=== PATIENT | male | born 1995 | race Caucasian/White ===

== ENCOUNTER 2016-09-29 17:07 | Emergency (ER) | payer OTHER ==
--- NOTE | 2016-09-29 18:40 | REP ---
SCROTAL ULTRASOUND: HISTORY: Swelling. The right testicle measures 4.7 x 2.4 x 3.3 cm. The left testicle measures 4.4 x 2 x 2.8 cm. A small focus of increased echogenicity is present in the mid right testicle. This measures 2.1 x 1.2 x 1.7 mm. This may represent a calcification. The right epididymis measures 10 mm. The left epididymis measures 7.7 mm. A cyst is present in the left epididymis. This measures 6.1 x 4.2 x 3.3 mm. There is no hydrocele or torsion. IMPRESSION: 1. There is a small 2.1 mm focus of increased echogenicity in the right testicle that may represent a calcification. 2. Small 6.1 mm left epididymal cyst. 3. There is no torsion. Signed by Robert Holland MD 09/29/2016 06:41 P
--- NOTE | 2016-09-29 18:57 | EDDOCDS ---
Nurse's Notes [facility] Name: Ari Wu Age: 21 yrs Sex: Male : 1995 Arrival Date: 09/29/2016 Time: 17:07 Bed Triage 3 Private MD: NO PRIMARY PHYSICIAN, . Diagnosis: Cyst of epididymis-left 6.1mm Presentation: 09/29 17:18 Presenting complaint: Patient states: left testicle is in constant pain and pain in hs1 lower abdomen. Patient reports left testicle is more swollen than the right side. patient reports no bruising noted. Adult Sepsis Screening: The patient does not have new or worsening altered mentation. Patient's respiratory rate is less than 22. Systolic blood pressure is greater than 100. Patient has a qSOFA score of 0- Negative Sepsis Screen. Suicide/Homicide risk assessment- the patient denies having any suicidal and/or homicidal ideations and does not present with any other emotional, behavioral or mental health complaints. Status: Patient is not a auto self service station attendant or dependent. Transition of care: patient was not received from another setting of care. 17:18 Acuity: ADRYAN Level 3 hs1 17:18 Method Of Arrival: Walkin/Carried/Asstd hs1 Triage Assessment: 17:21 General: Appears uncomfortable, Behavior is appropriate for age, cooperative. Pain: hs1 Location: left testicle Pain currently is 6 out of 10 on a pain scale. Quality of pain is described as sharp. Pt Declines HIV testing. Respiratory: No deficits noted. Derm: Skin is pink, warm & dry. normal. Historical: - Allergies: no known allergies; - Home Meds: 1. none - PMHx: none; - PSHx: none; - Social history: Smoking status: Patient states was never smoker of tobacco. No barriers to communication noted, The patient speaks fluent Finnish, Speaks appropriately for age. - Family history: Not pertinent. - : The pt / caregiver states he / she is not on anticoagulants. Home medication list is obtained from the patient. - Exposure Risk Screening:: None identified. Screenin:49 Screening information is obtained from the patient. Fall risk: No risks identified. js13 Assistance ADL's: requires no assistance with activities of daily living. Abuse/DV Screen: The patient / caregiver reports he/she is: not in a situation that causes fear, pain or injury. Nutritional screening: No deficits noted. Advance Directives: There is no active DNR order. home support is adequate. Assessment: 18:49 General: Appears in no apparent distress, Behavior is appropriate for age, cooperative. js13 Pain: Location: groin. Neurological: Level of Consciousness is awake, alert. Respiratory: Airway is patent Respiratory effort is even, unlabored, Respiratory pattern is regular, symmetrical. Derm: Skin is pink, warm & dry. Vital Signs: 17:08 BP 154 / 90; Pulse 98; Resp 18 S; Temp 97.4(O); Pulse Ox 100% on R/A; Weight 73.94 kg dd6 (R); Height 6 ft. 0 in. (182.88 cm) (R); 18:51 BP 138 / 90 LA Sitting (auto/reg); Pulse 90; Resp 20; Temp 96.6; Pulse Ox 99% on R/A; bnb Pain 6/10; 17:08 Body Mass Index 22.11 (73.94 kg, 182.88 cm) dd6 Vitals: 17:08 Log In Time: September 29, 2016 at 17:06. dd6 ED Course: 17:08 Patient visited by Samuel Hayward PCA. dd6 17:08 NO PRIMARY PHYSICIAN, . is Private Physician. dd6 17:08 Patient moved to Waiting dd6 17:09 Patient moved to Pre RCE dd6 17:21 Triage Initiated hs1 18:35 Patient moved to Triage 3 ar3 18:43 [facility] cc10 18:43 Caprice Hannah MD is Attending Physician. cc10 18:43 Patient visited by Sergo Gorman PA-C. cc10 18:43 Patient visited by Sergo Gorman PA-C. cc10 18:49 The patient / caregiver is instructed regarding the plan of care and ED course. js13 18:49 No IV's were initiated during this patient's visit. No procedures done that require js13 assistance. 18:51 Yakov Shaw is Referral Physician. cc10 18:52 Patient visited by Alta Tejada PCA. bnb Order Results: There are currently no results for this order. Outcome: 18:50 Discharge Assessment: Patient awake, alert and oriented x 3. No cognitive and/or js13 functional deficits noted. Patient verbalized understanding of disposition instructions. patient administered narcotics - no. The following High Risk Discharge criteria are identified: None. Discharged to home ambulatory, with parent. Condition: stable. Discharge instructions given to patient, Instructed on discharge instructions, follow up and referral plans. medication usage, Demonstrated understanding of instructions, medications, Pt was receptive of discharge instructions/ teaching. Prescriptions given X 1. Ultrasound Study completed. Property :Personal belongings accompany Pt. 18:52 Discharge ordered by Provider. cc10 18:56 Patient left the ED. js13 Signatures: Samuel Hayward, LOAN REVIEW OFFICER LOAN REVIEW OFFICER dd6 Venus Barrios, LOAN REVIEW OFFICER LOAN REVIEW OFFICER ar3 Bee Nelson, RN RN hs1 Annie KendallRN RN js13 Sergo Gorman, PA-C PA-C cc10 Alta Tejada, LOAN REVIEW OFFICER LOAN REVIEW OFFICER bnb MTDD
--- NOTE | 2016-09-29 18:57 | EDDOCDS ---
Physician Documentation [facility] Name: Ari Wu Age: 21 yrs Sex: Male : 1995 Arrival Date: 09/29/2016 Time: 17:07 Bed Triage 3 Private MD: NO PRIMARY PHYSICIAN, . Disposition: 09/29/16 18:52 Discharged to Home/Self Care. Impression: Cyst of epididymis - left 6.1mm. - Condition is Stable. - Discharge Instructions: Scrotal Masses. - Prescriptions for Naprosyn 500 mg Oral Tablet - take 1 tablet by ORAL route 2 times per day take with food; 30 tablet. - Medication Reconciliation, Local Pharmacy Hours form. - Follow up: Emergency Department; When: As needed. Follow up: Yakov Shaw; When: Call to arrange an appointment; Reason: Wound/Symptom Recheck, Recheck today's complaints, Worsening of conditions, Continuance of care. - Problem is an ongoing problem. - Symptoms are unchanged. Historical: - Allergies: no known allergies; - Home Meds: 1. none - PMHx: none; - PSHx: none; - Social history: Smoking status: Patient states was never smoker of tobacco. No barriers to communication noted, The patient speaks fluent Upper Sorbian, Speaks appropriately for age. - Family history: Not pertinent. - : The pt / caregiver states he / she is not on anticoagulants. Home medication list is obtained from the patient. - Exposure Risk Screening:: None identified. Vital Signs: 09/29 17:08 BP 154 / 90; Pulse 98; Resp 18 S; Temp 97.4(O); Pulse Ox 100% on R/A; Weight 73.94 kg / dd6 163.01 lbs (R); Height 6 ft. 0 in. (182.88 cm) (R); 18:51 BP 138 / 90 LA Sitting (auto/reg); Pulse 90; Resp 20; Temp 96.6; Pulse Ox 99% on R/A; bnb Pain 6/10; 17:08 Body Mass Index 22.11 (73.94 kg, 182.88 cm) dd6 MDM: 17:28 US Scrotal Ordered. EDMS 17:38 DUPLEX SCAN LIMITED (DOPPLER) Ordered. EDMS Signatures: Dispatcher [employer] EDBee Charles RN RN hs1 Annie Kendall,RN RN js13 Sergo Gorman, PA-C PA-C cc10 MTDD
--- NOTE | 2016-10-01 19:58 | EDDOCDS ---
Physician Documentation [facility] Name: Ari Wu Age: 21 yrs Sex: Male : 1995 Arrival Date: 09/29/2016 Time: 17:07 Bed Triage 3 Private MD: NO PRIMARY PHYSICIAN, . Disposition: 09/29/16 18:52 Discharged to Home/Self Care. Impression: Cyst of epididymis - left 6.1mm. - Condition is Stable. - Discharge Instructions: Scrotal Masses. - Prescriptions for Naprosyn 500 mg Oral Tablet - take 1 tablet by ORAL route 2 times per day take with food; 30 tablet. - Medication Reconciliation, Local Pharmacy Hours form. - Follow up: Emergency Department; When: As needed. Follow up: Yakov Razo; When: Call to arrange an appointment; Reason: Wound/Symptom Recheck, Recheck today's complaints, Worsening of conditions, Continuance of care. - Problem is an ongoing problem. - Symptoms are unchanged. Historical: - Allergies: no known allergies; - Home Meds: 1. none - PMHx: none; - PSHx: none; - Social history: Smoking status: Patient states was never smoker of tobacco. No barriers to communication noted, The patient speaks fluent Tamazight, Speaks appropriately for age. - Family history: Not pertinent. - : The pt / caregiver states he / she is not on anticoagulants. Home medication list is obtained from the patient. - Exposure Risk Screening:: None identified. Vital Signs: 09/29 17:08 BP 154 / 90; Pulse 98; Resp 18 S; Temp 97.4(O); Pulse Ox 100% on R/A; Weight 73.94 kg / dd6 163.01 lbs (R); Height 6 ft. 0 in. (182.88 cm) (R); 18:51 BP 138 / 90 LA Sitting (auto/reg); Pulse 90; Resp 20; Temp 96.6; Pulse Ox 99% on R/A; bnb Pain 6/10; 17:08 Body Mass Index 22.11 (73.94 kg, 182.88 cm) dd6 MDM: 17:28 US Scrotal Ordered. EDMS 17:38 DUPLEX SCAN LIMITED (DOPPLER) Ordered. EDMS 22:16 [facility] [place] Payment Agreement was scanned into [employer] and attached to record. gjb 22:16 Financial registration complete. gjb 09/30 09:50 T-Sheet-- Draft Copy was scanned into [employer]ulu and attached to record. gb 21:01 ED course: dr razo faxed formal report of scrotal us for fu mlg. ml Signatures: Dispatcher [employer] EDMS Caprice Hannah MD MD ml Te, Laura, Reg Reg gb Bee Nelson RN RN hs1 Annie KendallRN RN js13 Sergo Gorman, PA-C PA-C cc10 Yudelka Retana The chart was reviewed and I authenticate all verbal orders and agree with the evaluation and treatment provided.Attachments: 09/29 22:16 [facility] [place] Payment Agreement gjb 09/30 09:50 T-Sheet-- Draft Copy gb Chart Complete MTDD
--- NOTE | 2016-10-01 19:58 | EDDOCDS ---
Nurse's Notes [facility] Name: Ari Wu Age: 21 yrs Sex: Male : 1995 Arrival Date: 09/29/2016 Time: 17:07 Bed Triage 3 Private MD: NO PRIMARY PHYSICIAN, . Diagnosis: Cyst of epididymis-left 6.1mm Presentation: 09/29 17:18 Presenting complaint: Patient states: left testicle is in constant pain and pain in hs1 lower abdomen. Patient reports left testicle is more swollen than the right side. patient reports no bruising noted. Adult Sepsis Screening: The patient does not have new or worsening altered mentation. Patient's respiratory rate is less than 22. Systolic blood pressure is greater than 100. Patient has a qSOFA score of 0- Negative Sepsis Screen. Suicide/Homicide risk assessment- the patient denies having any suicidal and/or homicidal ideations and does not present with any other emotional, behavioral or mental health complaints. Status: Patient is not a service consultant or dependent. Transition of care: patient was not received from another setting of care. 17:18 Acuity: ADRYAN Level 3 hs1 17:18 Method Of Arrival: Walkin/Carried/Asstd hs1 Triage Assessment: 17:21 General: Appears uncomfortable, Behavior is appropriate for age, cooperative. Pain: hs1 Location: left testicle Pain currently is 6 out of 10 on a pain scale. Quality of pain is described as sharp. Pt Declines HIV testing. Respiratory: No deficits noted. Derm: Skin is pink, warm & dry. normal. Historical: - Allergies: no known allergies; - Home Meds: 1. none - PMHx: none; - PSHx: none; - Social history: Smoking status: Patient states was never smoker of tobacco. No barriers to communication noted, The patient speaks fluent Eritrean, Speaks appropriately for age. - Family history: Not pertinent. - : The pt / caregiver states he / she is not on anticoagulants. Home medication list is obtained from the patient. - Exposure Risk Screening:: None identified. Screenin:49 Screening information is obtained from the patient. Fall risk: No risks identified. js13 Assistance ADL's: requires no assistance with activities of daily living. Abuse/DV Screen: The patient / caregiver reports he/she is: not in a situation that causes fear, pain or injury. Nutritional screening: No deficits noted. Advance Directives: There is no active DNR order. home support is adequate. Assessment: 18:49 General: Appears in no apparent distress, Behavior is appropriate for age, cooperative. js13 Pain: Location: groin. Neurological: Level of Consciousness is awake, alert. Respiratory: Airway is patent Respiratory effort is even, unlabored, Respiratory pattern is regular, symmetrical. Derm: Skin is pink, warm & dry. Vital Signs: 17:08 BP 154 / 90; Pulse 98; Resp 18 S; Temp 97.4(O); Pulse Ox 100% on R/A; Weight 73.94 kg dd6 (R); Height 6 ft. 0 in. (182.88 cm) (R); 18:51 BP 138 / 90 LA Sitting (auto/reg); Pulse 90; Resp 20; Temp 96.6; Pulse Ox 99% on R/A; bnb Pain 6/10; 17:08 Body Mass Index 22.11 (73.94 kg, 182.88 cm) dd6 Vitals: 17:08 Log In Time: September 29, 2016 at 17:06. dd6 ED Course: 17:08 Patient visited by Samuel Hayward PCA. dd6 17:08 NO PRIMARY PHYSICIAN, . is Private Physician. dd6 17:08 Patient moved to Waiting dd6 17:09 Patient moved to Pre RCE dd6 17:21 Triage Initiated hs1 18:35 Patient moved to Triage 3 ar3 18:43 Sergo Gorman PA-C is [facility]. cc10 18:43 Caprice Hannah MD is Attending Physician. cc10 18:43 Patient visited by Sergo Gorman PA-C. cc10 18:43 Patient visited by Sergo Gorman PA-C. cc10 18:49 The patient / caregiver is instructed regarding the plan of care and ED course. js13 18:49 No IV's were initiated during this patient's visit. No procedures done that require js13 assistance. 18:51 Yakov Shaw is Referral Physician. cc10 18:52 Patient visited by Alta Tejada PCA. bnb 19:16 US Scrotal Returned. EDMS 22:16 [facility] Payment Agreement was scanned into [employer] and attached to record. gjb 23:16 Patient name changed from Ari\S\J\S\Bombard\S\ to Ari\S\ \S\Bombard. EDMS 09/30 09:50 T-Sheet-- Draft Copy was scanned into [employer] and attached to record. gb Order Results: Radiology Order: US Scrotal Test: US Scrotal REASON FOR EXAMINATION: tenderness and swelling; SCROTAL ULTRASOUND:; ; HISTORY: Swelling.; ; The right testicle measures 4.7 x 2.4 x 3.3 cm. The left testicle measures 4.4 x; 2 x 2.8 cm. A small focus of increased echogenicity is present in the mid right; testicle. This measures 2.1 x 1.2 x 1.7 mm. This may represent a calcification.; The right epididymis measures 10 mm. The left epididymis measures 7.7 mm. A cyst; is present in the left epididymis. This measures 6.1 x 4.2 x 3.3 mm. There is no; hydrocele or torsion.; ; IMPRESSION:; ; 1. There is a small 2.1 mm focus of increased echogenicity in the right testicle; that may represent a calcification.; ; 2. Small 6.1 mm left epididymal cyst.; ; 3. There is no torsion.; ; ; Signed by; Robert Holland MD 09/29/2016 06:41 P; Outcome: 09/29 18:50 Discharge Assessment: Patient awake, alert and oriented x 3. No cognitive and/or js13 functional deficits noted. Patient verbalized understanding of disposition instructions. patient administered narcotics - no. The following High Risk Discharge criteria are identified: None. Discharged to home ambulatory, with parent. Condition: stable. Discharge instructions given to patient, Instructed on discharge instructions, follow up and referral plans. medication usage, Demonstrated understanding of instructions, medications, Pt was receptive of discharge instructions/ teaching. Prescriptions given X 1. Ultrasound Study completed. Property :Personal belongings accompany Pt. 18:52 Discharge ordered by Provider. cc10 18:56 Patient left the ED. js13 Signatures: Dispatcher [employer] EDMS Laura Tiwari, Reg Reg gb Samuel Hayward, KNIT TUBING DYER KNIT TUBING DYER dd6 Venus Barrios, KNIT TUBING DYER KNIT TUBING DYER ar3 Bee Nelson RN RN hs1 Annie Kendall,RN RN js13 Sergo Gorman, PA-C PA-C cc10 Yudelka Retana Brittney, KNIT TUBING DYER KNIT TUBING DYER bnb Chart Complete MTDD
--- NOTE | 2016-10-01 19:58 | EDDOCDS ---
Physician Documentation [facility] Name: Ari Wu Age: 21 yrs Sex: Male : 1995 Arrival Date: 09/29/2016 Time: 17:07 Bed Triage 3 Private MD: NO PRIMARY PHYSICIAN, . Disposition: 09/29/16 18:52 Discharged to Home/Self Care. Impression: Cyst of epididymis - left 6.1mm. - Condition is Stable. - Discharge Instructions: Scrotal Masses. - Prescriptions for Naprosyn 500 mg Oral Tablet - take 1 tablet by ORAL route 2 times per day take with food; 30 tablet. - Medication Reconciliation, Local Pharmacy Hours form. - Follow up: Emergency Department; When: As needed. Follow up: Yakov Razo; When: Call to arrange an appointment; Reason: Wound/Symptom Recheck, Recheck today's complaints, Worsening of conditions, Continuance of care. - Problem is an ongoing problem. - Symptoms are unchanged. Historical: - Allergies: no known allergies; - Home Meds: 1. none - PMHx: none; - PSHx: none; - Social history: Smoking status: Patient states was never smoker of tobacco. No barriers to communication noted, The patient speaks fluent Greenlandic, Speaks appropriately for age. - Family history: Not pertinent. - : The pt / caregiver states he / she is not on anticoagulants. Home medication list is obtained from the patient. - Exposure Risk Screening:: None identified. Vital Signs: 09/29 17:08 BP 154 / 90; Pulse 98; Resp 18 S; Temp 97.4(O); Pulse Ox 100% on R/A; Weight 73.94 kg / dd6 163.01 lbs (R); Height 6 ft. 0 in. (182.88 cm) (R); 18:51 BP 138 / 90 LA Sitting (auto/reg); Pulse 90; Resp 20; Temp 96.6; Pulse Ox 99% on R/A; bnb Pain 6/10; 17:08 Body Mass Index 22.11 (73.94 kg, 182.88 cm) dd6 MDM: 17:28 US Scrotal Ordered. EDMS 17:38 DUPLEX SCAN LIMITED (DOPPLER) Ordered. EDMS 22:16 [facility] [place] Payment Agreement was scanned into [email or web address] and attached to record. gjb 22:16 Financial registration complete. gjb 09/30 09:50 T-Sheet-- Draft Copy was scanned into [email or web address] and attached to record. gb 21:01 ED course: dr razo faxed formal report of scrotal us for fu mlg. ml Signatures: Dispatcher [employer] EDMS Caprice Hannah MD MD ml Te, Laura, Reg Reg gb Bee Nelson RN RN hs1 Annie KendallRN RN js13 Sergo Gorman, PA-C PA-C cc10 Yudelka Retana The chart was reviewed and I authenticate all verbal orders and agree with the evaluation and treatment provided.Attachments: 09/29 22:16 [facility] Payment Agreement gjb 09/30 09:50 T-Sheet-- Draft Copy gb Chart Complete MTDD
== END 2016-09-29 18:56 | disposition home or self-care (01) ==
LOC: M ED 17:07
DX: N50.3 Cyst of epididymis (principal)

== ENCOUNTER → 2016-09-29 | Outpatient (REF) | payer OTHER | END | disposition home or self-care (01) | LOC: M SFHCLERA 16:30 | PROVIDERS: ATTEND Nurse Practitioner Family | DX: N50.819 Testicular pain, unspecified (principal) ==